=== PATIENT | male | born 1990 | race Caucasian/White ===

== ENCOUNTER 2017-11-02 17:35 | Emergency (ER) | payer OTHER ==
[~2017-11-02] VITALS: Ht 185.4 cm; Wt 101.1 kg
[2017-11-02] MEDS ORDERED: FIORICET 50-301 EAC1 PO (19:22)
[2017-11-02 19:33] VITALS: BP 129/72
== END 2017-11-02 19:33 | disposition home or self-care (01) ==
LOC: EME 17:35 → EDBD 17:35 → EME 19:33
DX: S06.0X1A Concussion with loss of consciousness of 30 minutes or less, initial encounter (principal); W21.03XA Struck by baseball, initial encounter; Y92.320 Baseball field as the place of occurrence of the external cause; Y99.0 Civilian activity done for income or pay
CPT/HCPCS: 70450; 99281; 99284